=== PATIENT | female | born 1975 | race African-American/Black ===

== ENCOUNTER 2021-03-16 17:52 | Emergency (ER) | payer OTHER ==
[~2021-03-16] VITALS: Ht 170.2 cm; Wt 62.6 kg
--- NOTE | 2021-03-16 19:00 | NUR ---
PT BIBS R EYE DISCOMFORT X 2 DAYS. PT A/OX4. ON R/A TOLERATING WELL.
[2021-03-16] MEDS ORDERED: FLUORESCEIN SODIUM OPHTH 1 EA STRIP ONE (19:21)
[2021-03-16] MEDS ORDERED: TETRACAINE HCL 0.5% OPHTALMIC 15 ML BOTTLE OP ONE (19:30)
[2021-03-16] MEDS ORDERED: FLUORESCEIN SODIUM OPHTH 1 EA STRIP OP ONE (19:30)
--- NOTE | 2021-03-16 20:27 | NUR ---
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
[2021-03-16] MEDS ORDERED: ERYT3.5O9 RIGHTEYE (20:41)
--- NOTE | 2021-03-16 20:49 | NUR ---
Patient discharged to home in stable condition. RX Written and verbal after care instructions given. Patient verbalizes understanding of instruction. PT ambulatory with a steady gait.
[2021-03-16 20:50] VITALS: BP 124/87
== END 2021-03-16 20:50 | disposition home or self-care (01) ==
LOC: ER 19:07
DX: S05.01XA Injury of conjunctiva and corneal abrasion without foreign body, right eye, initial encounter (principal); Z79.899 Other long term (current) drug therapy; X58.XXXA Exposure to other specified factors, initial encounter; Y93.89 Activity, other specified; Y92.89 Other specified places as the place of occurrence of the external cause; Y99.8 Other external cause status